=== PATIENT | female | born 1965 | race African-American/Black ===

== ENCOUNTER 2019-06-16 18:53 | Emergency (ER) | payer OTHER ==
[2019-06-16 21:26] LABS: Albumin 4.1 g/dL (3.2-5.2); Albumin/Globulin Ratio 1.2 (1-3); BUN/Creatinine Ratio 19.8 (8-20); EGFR African American 73.3 (>60); EGFR Non-African American 60.6 (>60); Globulin 3.4 g/dL (2-4); Potassium 4.2 mmol/L (3.5-5.0); Total Bilirubin 0.2 mg/dL (0.2-1.0); Total Protein 7.5 g/dL (6.4-8.9)
--- NOTE | 2019-06-16 21:36 | ED ---
Upper Extremity Pain - HPI Summary HPI Summary: Patient from [facility] complains of persistent right shoulder pain and right side rib pain since mechanical fall in March 2019. Pain with deep inhalation, sneezing, coughing, movement. Denies new trauma, fever, cough, sore throat, CP , SOB, N/V/D, abdominal pain, change in urine, change in BM. - History of Current Complaint Chief Complaint: EDShoulderClavicleInj Stated Complaint: FALL/PAIN PER PT Time Seen by Provider: 06/16/19 21:35 Hx Obtained From: Patient Mechanism Of Injury: Fall From A Standing Position Onset/Duration: Started Weeks Ago Timing: Intermittent Severity Initially: Moderate Severity Currently: Moderate Pain Location: Shoulder Character: Aching, Throbbing Aggravating Factor(s): Movement Alleviating Factor(s): Nothing Associated Signs & Symptoms: Positive: Negative - Allergies/Home Medications Allergies/Adverse Reactions: Allergies Allergy/AdvReac Type Severity Reaction Status Date / Time latex Allergy Hives Verified 06/16/19 19:09 Home Medications: Home Medications Cyclobenzaprine TAB* [Flexeril 10 MG TAB*] 10 mg PO TID PRN 8 Days #24 tab 06/16 [Rx] PMH/Surg Hx/FS Hx/Imm Hx Endocrine/Hematology History: Denies: Hx Anticoagulant Therapy Cardiovascular History: Denies: Hx Pacemaker/ICD History: Denies: Hx Dialysis Sensory History: Denies: Hx Eye Prosthesis Opthamlomology History: Denies: Hx Legally Blind EENT History: Denies: Hx Deafness Infectious Disease History: No Infectious Disease History: Denies: Traveled Outside the [place] in Last 30 Days - Family History Known Family History: Positive: Non-Contributory - Social History Alcohol Use: history of alcohol abuse. Hx Substance Use: Yes Hx Tobacco Use: Yes Review of Systems Constitutional: Negative Eyes: Negative ENT: Negative Cardiovascular: Negative Respiratory: Negative Gastrointestinal: Negative Genitourinary: Negative Musculoskeletal: Other Skin: Negative Neurological/Mental Status: Negative Psychological: Normal All Other Systems Reviewed And Are Negative: Yes Physical Exam - Summary Physical Exam Summary: Patient tender to palpation right side trapezius, right side paraspinal muscles of thoracic spine and right side lateral chest wall. PMS intact distally right upper extremity. Full range of motion of right upper extremity at elbow and shoulder. No ecchymosis, erythema, deformity noted to back, shoulder, right side chest wall. Triage Information Reviewed: Yes Vital Signs On Initial Exam: Initial Vitals Temp Pulse Resp BP Pulse Ox 99.7 F 85 16 138/85 98 06/16/19 19:05 06/16/19 19:05 06/16/19 19:05 06/16/19 19:05 06/16/19 19:05 Vital Signs Reviewed: Yes Appearance: Positive: Well-Appearing Skin: Positive: Warm Head/Face: Positive: Normal Head/Face Inspection Eyes: Positive: Normal Neck: Positive: Supple Respiratory/Lung Sounds: Positive: Clear to Auscultation Cardiovascular: Positive: Normal Abdomen Description: Positive: Nontender Musculoskeletal: Positive: Normal Neurological: Positive: Normal Psychiatric: Positive: Normal AVPU Assessment: Alert - Kiana Coma Scale Best Eye Response: 4 - Spontaneous Best Motor Response: 6 - Obeys Commands Best Verbal Response: 5 - Oriented Coma Scale Total: 15 Procedures - Sedation Patient Received Moderate/Deep Sedation with Procedure: No Diagnostics - Vital Signs Vital Signs Temp Pulse Resp BP Pulse Ox 06/16/19 21:00 98.1 F 70 18 152/97 06/16/19 19:05 99.7 F 85 16 138/85 98 - Laboratory Lab Results: Lab Results 06/16/19 06/16/19 Range/Units 20:56 20:56 Sodium 140 (135-145) mmol/L Potassium 4.2 (3.5-5.0) mmol/L Chloride 109 (101-111) mmol/L Carbon Dioxide 25 (22-32) mmol/L Anion Gap 6 (2-11) mmol/L BUN 19 (6-24) mg/dL Creatinine 0.96 H (0.51-0.95) mg/dL Est GFR ( Amer) 73.3 (>60) Est GFR (Non-Af Amer) 60.6 (>60) BUN/Creatinine Ratio 19.8 (8-20) Glucose 90 (70-100) mg/dL Lactic Acid 0.5 (0.5-2.0) mmol/L Calcium 10.0 (8.6-10.3) mg/dL Total Bilirubin 0.20 (0.2-1.0) mg/dL AST 56 H (13-39) U/L ALT 94 H (7-52) U/L Alkaline Phosphatase 189 H (34-104) U/L Total Protein 7.5 (6.4-8.9) g/dL Albumin 4.1 (3.2-5.2) g/dL Globulin 3.4 (2-4) g/dL Albumin/Globulin Ratio 1.2 (1-3) Result Diagrams: 06/16/19 20:56 06/16/19 20:56 Lab Statement: Any lab studies that have been ordered have been reviewed, and results considered in the medical decision making process. Course/Dx - Course Course Of Treatment: Patient from [facility] complains of persistent right shoulder pain and right side rib pain since mechanical fall in March 2019. Pain with deep inhalation, sneezing, coughing, movement. Denies new trauma, fever, cough , sore throat, CP, SOB, N/V/D, abdominal pain, change in urine, change in BM. Vital signs within normal limits. Symptoms improved with ibuprofen and Flexeril. Shoulder x-ray negative. Chest x-ray negative. - Diagnoses Provider Diagnoses: Muscle spasm, Right-sided chest wall pain Discharge ED - Sign-Out/Discharge Documenting (check all that apply): Patient Departure - Discharge Plan Condition: Stable Disposition: HOME Prescriptions: Cyclobenzaprine TAB* [Flexeril 10 MG TAB*] 10 mg PO TID PRN 8 Days #24 tab PRN Reason: Spasms Patient Education Materials: Muscle Spasm (ED), Chest Wall Pain (ED) Forms: *Gen. Provider Communication Referrals: No Primary Care Phys,NOPCP [Primary Care Provider] - Additional Instructions: Alternate ibuprofen 600 mg with Tylenol 650 mg every 3 hours for chest wall pain. Take Flexeril as directed for muscle spasm of back. Follow-up with primary care. - Billing Disposition and Condition Condition: STABLE Disposition: Home
[2019-06-16 21:40] LABS: ABS Eosinophils 0.6 10^3/ul (0-0.6); ABS Lymphocytes 2.1 10^3/ul (1.0-4.8); ABS Monocytes 0.5 10^3/ul (0-0.8); ABS Neutrophils 3.2 10^3/ul (1.5-7.7); Eosinophil % 9.1 %; Hematocrit 38 % (35-47); Hemoglobin 12.4 g/dL (12.0-16.0); Lymphocyte % 32.7 %; Mean Corpuscular HGB Conc 33 g/dL (31-36); Mean Corpuscular Hemoglobin 26 pg (27-31); Mean Corpuscular Volume 78 fL (80-97); Mean Platelet Volume 6.8 fL (7.4-10.4); Nucleated Red Blood Cells % 0.2; Platelet Count 303 10^3/uL (150-450); Red Blood Count 4.83 10^6 /uL (3.70-4.87); Red Cell Distribution Width 14 % (10-15); White Blood Count 6.3 10^3/uL (3.5-10.8)
[2019-06-16 22:18] LABS: Troponin I 0.01 ng/mL (<0.03)
[2019-06-16] MEDS ORDERED: Cyclobenzaprine TAB* 10 MG PO ONE (23:08)
[2019-06-16] MEDS ORDERED: Ketorolac INJ* 30 MG/ML 1 ML VIAL IM ONE (23:08)
[2019-06-16] MEDS ORDERED: oxyCODONE TAB* 5 MG TAB PO ONE (23:24)
[2019-06-17 00:11] VITALS: BP 124/87
--- NOTE | 2019-06-17 11:26 | ED ---
Imaging and Labs Follow Up Follow Up Type: Labs/Cultures Labs/Culture Result: na Patient Communication/Plan: na Imaging Result: Imaging showed concern for viral pneumonia Patient Communication/Plan: Radiologist showed his concern for possible COVID virus infection as chest x- ray findings were consistent with this diagnosis. Patient was called and asymptomatic with no history of exposure or travel and was considered low risk for coronavirus. Health Department called who also cleared the patient. Nothing further at this time. Provider Diagnoses: Muscle spasm, Right-sided chest wall pain
== END 2019-06-17 00:11 | disposition home or self-care (01) ==
LOC: ED 18:53
DX: M62.838 Other muscle spasm (principal); R07.89 Other chest pain; Z91.040 Latex allergy status
CPT/HCPCS: 36415; 71046; 80053; 83605; 84484; 85025; 93005; 96372; 99283; A9270-GY; J1885